=== PATIENT | female | born 1995 | race Caucasian/White ===

== ENCOUNTER → 2019-12-20 09:38 | Outpatient (BNVA) | payer OTHER, SELFPAY | PROVIDERS: PCP Internal Medicine; Visit Provider Advanced Practice Midwife | DX: Z76.89 Persons encountering health services in other specified circumstances (principal) ==

== ENCOUNTER → 2020-12-20 09:24 | Outpatient (BNVA) | payer OTHER, SELFPAY | PROVIDERS: PCP Internal Medicine; Visit Provider Advanced Practice Midwife ==

== ENCOUNTER 2021-01-31 09:49 | Outpatient (REF) | payer OTHER, SELFPAY | END 2021-01-31 09:50 | disposition home or self-care (01) | LOC: HO.HMGCLDS 09:49 | PROVIDERS: Visit Provider Internal Medicine | DX: Z20.822 Contact with and (suspected) exposure to COVID-19 (principal) | CPT/HCPCS: C9803; U0003; U0005 ==

== ENCOUNTER 2021-12-24 09:53 | Outpatient (REF) | payer OTHER, SELFPAY ==
[2021-12-24 16:32] LABS: CT PCR NOT DETECTED (Not Detect.); NG PCR NOT DETECTED (Not Detect.)
== END 2021-12-24 09:54 | disposition home or self-care (01) ==
LOC: HO.LNP 09:53
PROVIDERS: Visit Provider Advanced Practice Midwife
DX: Z01.419 Encounter for gynecological examination (general) (routine) without abnormal findings (principal)
CPT/HCPCS: 87491; 87591; 88142

== ENCOUNTER 2022-02-20 13:55 | Outpatient (REF) | payer OTHER, SELFPAY ==
[2022-02-20 15:12] LABS: Influenza A PCR NEGATIVE (Negative); Influenza B PCR NEGATIVE (Negative); Resp Syncy Virus RNA Qual PCR NEGATIVE (Negative); SARS COV2 PCR INHOUSE NEGATIVE (Negative)
== END 2022-02-20 13:56 | disposition home or self-care (01) ==
LOC: HO.LNP 13:55
PROVIDERS: Visit Provider Emergency Medicine
DX: Z20.822 Contact with and (suspected) exposure to COVID-19 (principal); R68.89 Other general symptoms and signs
CPT/HCPCS: 0241U

== ENCOUNTER 2022-06-22 23:29 | Emergency (ER) | payer OTHER, SELFPAY ==
[2022-06-22 23:33] VITALS: BP 159/85; PULSE 91; RESP 18; TEMP 36.9; O2SAT 97; BMI 30.4
[2022-06-23 00:47] VITALS: BP 140/82; PULSE 81; RESP 16; TEMP 36.8; O2SAT 98
--- NOTE | 2022-06-23 00:59 | ED_ITS ---
HPI - Back Pain/Injury General Chief Complaint: Back Pain/Injury Stated Complaint: LBP Time Seen by Provider: 06/23/22 00:49 Source: patient Mode of arrival: ambulatory Limitations: no limitations History of Present Illness HPI Narrative: Patient obese he has chronic back problems noticed increased pain lower leg for last 2 weeks seen her PCP started her on NSAIDs and muscle relaxers patient been taking that but without much relief no recent trauma no radiation of pain to the legs no bladder or bowel incontinence note slow in his Related Data Previous Rx's Medication Instructions Recorded norethindrone 1 mg-ethinyl 1 tab PO DAILY 21 days #21 tabs 12/24/21 estradiol 35 mcg (21) tablet (Nortrel) cyclobenzaprine 10 mg tablet 10 mg PO BEDTIME #14 tabs 06/10/22 meloxicam 15 mg tablet 15 mg PO DAILY #14 tabs 06/10/22 tramadol 50 mg tablet 50 mg PO Q6H PRN pain #20 tabs 06/23/22 Allergies Allergy/AdvReac Type Severity Reaction Status Date / Time No Known Allergies Allergy Verified 06/10/22 14:51 Review of Systems Review of Systems: Yes all other systems are reviewed and are negative [facility] Past Medical History Medical History History of congenital dysplasia of hip Morbid obesity with BMI of 40.0-44.9, adult Surgical History History of hip surgery Family History Family History Maternal Grandfather Diabetes mellitus Colon cancer Social History Social History Alcohol intake: never Patient Tobacco Use Status: Never used Tobacco Advance Directives: No Advance Directives Information Provided: Yes Current occupational status: unemployed Sexual orientation: Straight/Heterosexual Gender identity: Female Physical Exam Vital Signs: Vital Signs: Last Vital Signs Temp 98.2 F 06/23/22 00:47 Pulse 81 06/23/22 00:47 Resp 16 06/23/22 00:47 BP 140/82 H 06/23/22 00:47 Pulse Ox 98 06/23/22 00:47 O2 Del Method Room Air 06/23/22 00:47 BMI result Body Mass Index 30.4 Appearance: Alert. Oriented X3. No acute distress. ENT: Pharynx normal. Oral Mucosa moist Neck: Normal inspection. Neck supple. CVS: Normal heart rate and rhythm. Pulses normal. Respiratory: No respiratory distress. Equal air entry bilateral, no wheezing/rales/rhonchi Abdomen: Soft and nontender. Bowel sounds are present, no mass palpable, no CVA tenderness Skin: Skin warm and dry. Normal skin color. Normal skin turgor. Extremities: No lower extremity edema. No calf tenderness back: Diffuse lumbar paraspinal tenderness L> R no midline tenderness SLR negative bilaterally Neuro: Oriented X 3. No motor deficit. No sensory deficit.No cerebellar signs , cranial nerves II-XII intact Medications Administered Discontinued Medications Generic Name Dose Route Start Last Admin Trade Name Freq PRN Reason Stop Dose Admin Tramadol HCl 50 mg 06/23/22 00:59 06/23/22 01:04 Tramadol Hcl 50 Mg Tablet PO 06/23/22 01:00 50 mg ONCE ONE Administration Medical Decision Making Medical Decision Making [facility] Narrative: Patient clinically musculoskeletal pain with obesity discharge patient on tramadol advised to continue Flexeril UA is negative for UTI Lab Data [facility] Lab Attestation statement: I reviewed the patient's lab results. Labs: Lab Results 06/23/22 Range/Units 01:05 Urine Color Yellow Urine Appearance Clear Urine pH 6.5 (5.0-9.0) Ur Specific [place] >= 1.030 H (1.005-1.025) Urine Protein Trace (Neg-Trace) mg/dL Urine Glucose (UA) Negative (Negative) mg/dL Urine Ketones Negative (Negative) mg/dL Urine Blood Negative (Negative) Urine Nitrite Negative (Negative) Ur Leukocyte Esterase Negative (Negative) Discharge Plan Discharge Clinical Impression: Strain of lumbar region Patient Disposition: Home, Self-Care Instructions: Back Pain (ED) Additional Instructions: Take pain medication muscle relaxant as prescribed Follow-up with PCP Prescriptions: New tramadol 50 mg tablet 50 mg PO Q6H PRN (Reason: pain) Qty: 20 0RF No Action Nortrel 1/35 (21) 1-35 mg-mcg (21) tablet 1 tab PO DAILY 21 Days Qty: 21 11RF meloxicam 15 mg tablet 15 mg PO DAILY Qty: 14 0RF cyclobenzaprine 10 mg tablet 10 mg PO BEDTIME Qty: 14 0RF
[2022-06-23] MEDS: traMADoL HCL 50 MG TABLET PO (01:04)
[2022-06-23 01:14] LABS: Appearance Urine Clear; Color Urine Yellow; Glucose Urine UA Negative (Negative); Leukocyte Esterase Urine Negative (Negative); Nitrite Urine Negative (Negative); PH 6.5 (5.0-9.0); Specific Gravity - Urine >= 1.030 (1.005-1.025); Urine Blood Negative (Negative); Urine Ketones Negative (Negative); Urine Protein Trace mg/dL (Neg-Trace)
== END 2022-06-23 01:45 | disposition home or self-care (01) ==
PROVIDERS: Emergency Provider Internal Medicine; PCP Internal Medicine
DX: S39.012A Strain of muscle, fascia and tendon of lower back, initial encounter (principal); X58.XXXA Exposure to other specified factors, initial encounter; Y93.9 Activity, unspecified; Y92.9 Unspecified place or not applicable; Y99.9 Unspecified external cause status
CPT/HCPCS: 81003; 99283

== ENCOUNTER 2022-07-06 21:50 | Emergency (ER) | payer OTHER, SELFPAY ==
--- NOTE | ~2022-07-06 | XR_ITS ---
EXAMINATION: XR HIP, LEFT CLINICAL INFORMATION: Left hip pain COMPARISON: None available. TECHNIQUE: Single AP view the pelvis Two views of the left hip. FINDINGS: No acute fracture or dislocation. Healed subcapital fracture of the left femur with a single cannulated screw in the left femoral neck. Femoral heads are spherical. Pelvic ring intact. Soft tissues unremarkable. XR/XR hip LT min 2V IMPRESSION: * No acute fracture or dislocation. * Old healed subcapital fracture of the left femur.
--- NOTE | ~2022-07-06 | XR_ITS ---
EXAMINATION: XR LUMBOSACRAL SPINE CLINICAL INFORMATION: Back pain COMPARISON: None available. TECHNIQUE: Three views of the lumbosacral spine. FINDINGS: No acute fracture or traumatic malalignment. Vertebral body heights maintained. Disc space heights preserved. Paraspinal soft tissues unremarkable. XR/XR lumbar spine 2-3V IMPRESSION: Normal radiographic appearance of the lumbar spine.
[2022-07-06 22:00] VITALS: BP 130/88; PULSE 88; RESP 18; TEMP 36.6; O2SAT 98; BMI 43.1
[2022-07-06 22:22] LABS: MANUAL DIFF FLAG NO
[2022-07-06 22:25] LABS: Basophils Percent Auto 0.6 % (0-2); Eosinophils Absolute Auto 0.2 X10*3/uL (0.0-0.4); Eosinophils Percent Auto 3.2 % (0-4); Hematocrit 37.9 % (37.0-47.0); Hemoglobin 13.5 g/dl (12.0-16.0); Imm Gran Abs Auto 0.03 X10*3/uL (0.00-0.03); Imm Gran Pct Auto 0.4 % (0.0-0.4); Lymphocytes Absolute Auto 3.3 X10*3/uL (1.2-4.9); Mean Corpuscular HGB Conc 35.6 g/dl (31.0-35.0); Mean Corpuscular Hemoglobin 30.6 pg (27.0-33.0); Mean Corpuscular Volume 85.9 fL (80.0-98.0); Mean Platelet Volume 9.4 fL (9.4-12.3); Monocytes Absolute Auto 0.8 X10*3/uL (0.1-1.2); Monocytes Percent Auto 11.4 % (2-11); Neutrophils Absolute Auto 2.5 x10*3/uL (2.0-8.3); Neutrophils Percent Auto 36.4 % (45-73); Platelet Count 313 X10*3/uL (160-400); Red Blood Count 4.41 X10*6/uL (4.20-5.50); Red Cell Distribution Width 12.7 % (11.0-16.0); White Blood Count 6.9 X10*3/uL (4.8-10.8)
[2022-07-06 22:38] LABS: Alanine Aminotransferase 35 U/L (0-31); Albumin Level 3.9 g/dL (3.5-5.0); Alkaline Phosphatase 49 U/L (39-117); Anion Gap 14 (12-20); Aspartate Amino Transferase 50 U/L (5-31); Bilirubin Direct 0.1 mg/dL (0.0-0.5); Bilirubin Total 0.4 mg/dL (0.0-1.0); Blood Urea Nitrogen 9 mg/dL (9-16); Calcium 9.5 mg/dL (8.4-10.2); Carbon Dioxide 25 mmol/L (22-29); Chloride 104 mmol/L (96-108); Creatinine Clr Calc Pharmacy 161.7; Estimated Glomerular Filt Rate > 60; Glucose Random 88 mg/dL (60-115); Lipase 19 U/L (8-78); Potassium 4.5 mmol/L (3.3-5.1); Sodium 138 mmol/L (135-145); Total Protein 7.2 g/dL (6.5-8.0)
[2022-07-06 23:57] LABS: Appearance Urine Clear; Color Urine Yellow; Glucose Urine UA Negative (Negative); Leukocyte Esterase Urine Negative (Negative); Nitrite Urine Negative (Negative); Urine Blood Negative (Negative); Urine Ketones Negative (Negative); Urine Protein Negative (Neg-Trace)
[2022-07-06 23:58] LABS: UPreg QC Valid YES; Urine Pregnancy NEGATIVE (NEGATIVE)
--- NOTE | 2022-07-07 00:09 | ED.BACK ---
HPI - Back Pain/Injury General Chief Complaint: Back Pain/Injury Stated Complaint: lower back pain Time Seen by Provider: 07/06/22 23:54 Source: patient and family Mode of arrival: ambulatory Limitations: no limitations History of Present Illness HPI Narrative: 27-year-old female with chronic back pain came in for evaluation of worsening of her low back pain for the past 4-5 weeks, patient had previous evaluation by her PCP was prescribed muscle relaxant/NSAIDs with no relief of patient's symptoms, patient also was seen and evaluated in the emergency department 2 weeks ago. Patient declined any trauma or injury to the back, no numbness, no weakness, no urinary or stool incontinence. No fever, no chills, pain is localized to the low back now started to radiate to the left hip patient had old left hip surgery. Related Data Previous Rx's Medication Instructions Recorded norethindrone 1 mg-ethinyl 1 tab PO DAILY 21 days #21 tabs 12/24/21 estradiol 35 mcg (21) tablet (Nortrel) cyclobenzaprine 10 mg tablet 10 mg PO BEDTIME #14 tabs 06/10/22 meloxicam 15 mg tablet 15 mg PO DAILY #14 tabs 06/10/22 tramadol 50 mg tablet 50 mg PO Q6H PRN pain #20 tabs 06/23/22 oxycodone 5 mg tablet 5 mg PO Q6H PRN pain #10 tabs 07/07/22 Allergies Allergy/AdvReac Type Severity Reaction Status Date / Time No Known Allergies Allergy Verified 07/06/22 22:04 Review of Systems Review of Systems: All other systems are reviewed and are negative Constitutional: Reports as per HPI and Reports no additional constitutional complaints Eyes: Reports as per HPI and Reports no additional eye complaints Reports system reviewed and no additional complaints, except as documented Cardiovascular: Reports as per HPI and Reports no additional cardiovascular complaints Respiratory: Reports as per HPI and Reports no additional respiratory complaints Gastrointestinal: Reports as per HPI and Reports no additional gastrointestinal complaints Genitourinary: Reports no additional female genitourinary complaints Musculoskeletal: Reports no additional musculoskeletal complaints Skin/Breast: Reports system reviewed and no additional complaints, except as docu Psychiatric: Reports no additional psychiatric complaints Endocrine: Reports no additional endocrine complaints Hematologic/Lymphatic: Reports no additional hematologic/lymphatic complaints Allergic/Immunologic: Reports no additional allergic/immunologic complaints Reports system reviewed and no additional complaints, except as documented and Reports Abnormal speech present [facility] Past Medical History Medical History History of congenital dysplasia of hip Morbid obesity with BMI of 40.0-44.9, adult Surgical History History of hip surgery Family History Family History Maternal Grandfather Diabetes mellitus Colon cancer Social History Social History Alcohol intake: never Patient Tobacco Use Status: Never used Tobacco Advance Directives: No Advance Directives Information Provided: Yes Current occupational status: unemployed Sexual orientation: Straight/Heterosexual Gender identity: Female Physical Exam Vital Signs: Vital Signs: Last Vital Signs Temp 98.0 F 07/07/22 00:52 Pulse 79 07/07/22 00:52 Resp 16 07/07/22 00:52 BP 127/84 07/07/22 00:52 Pulse Ox 97 07/07/22 00:52 O2 Del Method Room Air 07/07/22 00:52 BMI result Body Mass Index 43.1 Vital signs have been reviewed as appeared to be correct. Blood pressure normal. Heart rate normal. Respiration rate normal. Temperature normal. Oxygen saturation normal. Appearance: Obese, Alert. Oriented X3. No acute distress. Head: Normal external exam. Normocephalic. Atraumatic. No [place] signs noted. No raccoon eyes noted Eyes: PERRLA. EOMI. Conjunctiva and sclera normal. Eyelids normal. ENT: TM's Normal. Pharynx normal. Uvula midline. Moist mucous membranes. No trismus noted. No drooling noted. No muffled voice noted. Neck: Normal inspection. Neck supple. FROM. No adenopathy. Thyroid Normal. No meningeal signs. No neck mass noted. CVS: Normal heart rate and rhythm. Heart sound normal. No murmurs noted. Pulses normal throughout. Respiratory: No respiratory distress. Painless inspiration. Breath sounds normal. No wheezes/rales/rhonchi noted. Chest nontender. No accessory muscle usage noted or decreased air movement noted. Abdomen: Soft and nontender. Bowel sounds normal in all 4 quadrants. No distention noted. No organomegaly noted. No visible injury noted. Back: No CVA tenderness. Full range of motion noted. Skin: Skin warm and dry. Normal skin color. Normal skin turgor. No rashes/lesions/lacerations noted. Extremities: No lower extremity edema. Extremities exhibit normal range of motion. Extremities nontender. Neuro: Oriented X 3. Cranial nerve exam: II-XII are grossly intact No motor deficit. No sensory deficit. Reflexes normal. Course Course Course Narrative: 27-year-old female with acute on chronic back pain for 1 month with no injuries, unremarkable labs/UA/lumbar spine x-ray/left hip x-rays. Rest, few pills of oxycodone, follow-up with PCP, consider outpatient MRI if symptoms persist to be arranged by PCP. Medications Administered Discontinued Medications Generic Name Dose Route Start Last Admin Trade Name Freq PRN Reason Stop Dose Admin Oxycodone HCl 5 mg 07/07/22 00:20 07/07/22 00:38 Oxycodone Hcl Immed Release 5 Mg Tablet PO 07/07/22 00:21 5 mg ONCE ONE Administration Medical Decision Making Differential Diagnosis Differential Diagnoses: The differential diagnosis associated with the presentation includes (UTI, pyelonephritis, DDD of the lumbar spine, compression fracture, lumbar radiculopathy, electrolytes abnormalities, severe anemia.) Admission/Observation Consideration of admission/observation: Escalation of care including admission/observation considered Lab Data MDM Lab Attestation statement: I reviewed the patient's lab results. 07/06/22 22:18 07/06/22 22:18 Labs: Lab Results 07/06/22 07/06/22 07/06/22 Range/Units 22:18 22:18 23:26 WBC 6.9 (4.8-10.8) X10*3/uL RBC 4.41 (4.20-5.50) X10*6/uL Hgb 13.5 (12.0-16.0) g/dl Hct 37.9 (37.0-47.0) % MCV 85.9 (80.0-98.0) fL MCH 30.6 (27.0-33.0) pg MCHC 35.6 H (31.0-35.0) g/dl RDW 12.7 (11.0-16.0) % Plt Count 313 (160-400) X10*3/uL MPV 9.4 (9.4-12.3) fL Immature Gran % (Auto) 0.4 (0.0-0.4) % Neut % (Auto) 36.4 L (45-73) % Lymph % (Auto) 48.0 H (20-40) % [place] % (Auto) 11.4 H (2-11) % Eos % (Auto) 3.2 (0-4) % Baso % (Auto) 0.6 (0-2) % Lymph # (Auto) 3.3 (1.2-4.9) X10*3/uL [place] # (Auto) 0.8 (0.1-1.2) X10*3/uL Eos # (Auto) 0.2 (0.0-0.4) X10*3/uL Baso # (Auto) 0.0 (0.0-0.2) X10*3/uL Abs Immat Gran (auto) 0.03 (0.00-0.03) X10*3/uL Absolute Neuts (auto) 2.5 (2.0-8.3) x10*3/uL Absolute Nucleated RBC 0.000 (0.0-0.012) X10*3/uL Nucleated RBC % (auto) 0.0 (0.0-0.2) /100WBC Sodium 138 (135-145) mmol/L Potassium 4.5 (3.3-5.1) mmol/L Chloride 104 (96-108) mmol/L Carbon Dioxide 25 (22-29) mmol/L Anion Gap 14 (12-20) BUN 9 (9-16) mg/dL Creatinine 0.71 (0.5-1.4) mg/dL Estim Creat Clear Calc 161.7 Estimated GFR > 60 Random Glucose 88 (60-115) mg/dL Calcium 9.5 (8.4-10.2) mg/dL Total Bilirubin 0.4 (0.0-1.0) mg/dL Direct Bilirubin 0.1 (0.0-0.5) mg/dL AST 50 H (5-31) U/L ALT 35 H (0-31) U/L Alkaline Phosphatase 49 (39-117) U/L Total Protein 7.2 (6.5-8.0) g/dL Albumin 3.9 (3.5-5.0) g/dL Lipase 19 (8-78) U/L Urine Color Yellow Urine Appearance Clear Urine pH 7.0 (5.0-9.0) Ur Specific [place] 1.010 (1.005-1.025) Urine Protein Negative (Neg-Trace) mg/dL Urine Glucose (UA) Negative (Negative) mg/dL Urine Ketones Negative (Negative) mg/dL Urine Blood Negative (Negative) Urine Nitrite Negative (Negative) Ur Leukocyte Esterase Negative (Negative) Urine Test (NEGATIVE) 07/06/22 Range/Units 23:26 WBC (4.8-10.8) X10*3/uL RBC (4.20-5.50) X10*6/uL Hgb (12.0-16.0) g/dl Hct (37.0-47.0) % MCV (80.0-98.0) fL MCH (27.0-33.0) pg MCHC (31.0-35.0) g/dl RDW (11.0-16.0) % Plt Count (160-400) X10*3/uL MPV (9.4-12.3) fL Immature Gran % (Auto) (0.0-0.4) % Neut % (Auto) (45-73) % Lymph % (Auto) (20-40) % [place] % (Auto) (2-11) % Eos % (Auto) (0-4) % Baso % (Auto) (0-2) % Lymph # (Auto) (1.2-4.9) X10*3/uL [place] # (Auto) (0.1-1.2) X10*3/uL Eos # (Auto) (0.0-0.4) X10*3/uL Baso # (Auto) (0.0-0.2) X10*3/uL Abs Immat Gran (auto) (0.00-0.03) X10*3/uL Absolute Neuts (auto) (2.0-8.3) x10*3/uL Absolute Nucleated RBC (0.0-0.012) X10*3/uL Nucleated RBC % (auto) (0.0-0.2) /100WBC Sodium (135-145) mmol/L Potassium (3.3-5.1) mmol/L Chloride (96-108) mmol/L Carbon Dioxide (22-29) mmol/L Anion Gap (12-20) BUN (9-16) mg/dL Creatinine (0.5-1.4) mg/dL Estim Creat Clear Calc Estimated GFR Random Glucose (60-115) mg/dL Calcium (8.4-10.2) mg/dL Total Bilirubin (0.0-1.0) mg/dL Direct Bilirubin (0.0-0.5) mg/dL AST (5-31) U/L ALT (0-31) U/L Alkaline Phosphatase (39-117) U/L Total Protein (6.5-8.0) g/dL Albumin (3.5-5.0) g/dL Lipase (8-78) U/L Urine Color Urine Appearance Urine pH (5.0-9.0) Ur Specific [place] (1.005-1.025) Urine Protein (Neg-Trace) mg/dL Urine Glucose (UA) (Negative) mg/dL Urine Ketones (Negative) mg/dL Urine Blood (Negative) Urine Nitrite (Negative) Ur Leukocyte Esterase (Negative) Urine Test NEGATIVE (NEGATIVE) Independent Interpretation I performed an independent interpretation of an: Plain X-Ray (Lumbar spine/left hip x-ray: Old healing left femur fracture.) Radiology Impression Discussion of test interpretation with radiology: I have reviewed the radiologist's reading. Chronic Conditions Patient?s care impacted by: Other (Obesity) Discharge Plan Discharge Clinical Impression: Strain of lumbar region Patient Disposition: Home, Self-Care Instructions: Back Pain (ED) Prescriptions: New oxycodone 5 mg tablet 5 mg PO Q6H PRN (Reason: pain) Qty: 10 0RF Rx Instructions: Partial Fill upon patient request. No Action Nortrel 1/35 (21) 1-35 mg-mcg (21) tablet 1 tab PO DAILY 21 Days Qty: 21 11RF tramadol 50 mg tablet 50 mg PO Q6H PRN (Reason: pain) Qty: 20 0RF meloxicam 15 mg tablet 15 mg PO DAILY Qty: 14 0RF cyclobenzaprine 10 mg tablet 10 mg PO BEDTIME Qty: 14 0RF Referrals: Netta Beasley MD [Primary Care Provider] - Stand Alone Forms: Work/School Release
[2022-07-07] MEDS: oxyCODONE HCl Immed Release 5 MG TABLET PO (00:38)
[2022-07-07 00:52] VITALS: BP 127/84; PULSE 79; RESP 16; TEMP 36.7; O2SAT 97
== END 2022-07-07 01:58 | disposition home or self-care (01) ==
PROVIDERS: Emergency Provider Emergency Medicine; PCP Internal Medicine
DX: S39.012A Strain of muscle, fascia and tendon of lower back, initial encounter (principal); X58.XXXA Exposure to other specified factors, initial encounter; Y93.9 Activity, unspecified; Y92.9 Unspecified place or not applicable; Y99.9 Unspecified external cause status
CPT/HCPCS: 36415; 72100; 73502; 80048; 80076; 81003; 81025; 83690; 85025; 99283

== ENCOUNTER 2022-07-23 11:31 | Outpatient (REF) | payer OTHER, SELFPAY ==
[2022-07-23 14:25] LABS: Cholesterol 158 mg/dL; HDL Cholesterol 45 mg/dL; LDL Cholesterol Calculated 72 mg/dl; Triglycerides 205 mg/dL
== END 2022-07-23 11:32 | disposition home or self-care (01) ==
LOC: HO.HMGCLDS 11:31
PROVIDERS: PCP Internal Medicine; Visit Provider Internal Medicine
DX: Z00.01 Encounter for general adult medical examination with abnormal findings (principal); E66.01 Morbid (severe) obesity due to excess calories; Z68.41 Body mass index [BMI] 40.0-44.9, adult
CPT/HCPCS: 36415; 80061

== ENCOUNTER 2022-09-17 12:09 | Outpatient (AMB) | payer OTHER, SELFPAY ==
--- NOTE | 2022-09-17 12:15 | MHC.OFFWIV ---
Intake Vital Signs 09/17/22 12:24 BP 120/80 Blood Pressure Location Lt brachial Position Sitting Pulse 87 Pulse Source Pulse Oximeter Temp 98.7 F Temp Source Temporal Artery Scan Pulse Oximetry (%) 98 Oxygen Delivery Method Room Air Intake Visit Reasons: EP ear clogged, throat pain [phone] Intake Note: Patient here for bilat ears clogged, throat irritation and sinus congestion for a couple days Patient Tobacco Use Status: Never used Tobacco Allergies No Known Allergies Allergy (Verified 09/17/22 12:16) Do you need a note to return to daycare/school/sports/work: No HPI HPI Comments History of Present Illness Details 27-year-old female presents for clogged ears. Patient states that fluid scope with loose he has 2 sons pressure congestion clogged ears insert well as postnasal drip. Denies fevers or chills. Her sinus pressure has resolved now are ears feel full. ON LICENSE OF [facility] Medical History (Updated 07/23/22 @ 11:30 by Netta Beasley MD) History of congenital dysplasia of hip Morbid obesity with BMI of 40.0-44.9, adult Surgical History History of hip surgery Family History Maternal Grandfather Diabetes mellitus Colon cancer Social History Housing: House Alcohol intake: never Patient Tobacco Use Status: Never used Tobacco e-Cigarette/Vaping Use: Never Used Current occupational status: employed Sexual orientation: Straight/Heterosexual Gender identity: Female Cognitive needs: No Hearing needs: No Vision needs: No Female Reproductive History Menstrual Age of Menarche: 11 Review of Systems Const All systems reviewed & are unremarkable except as noted in HPI and below Reports as per HPI ENT Details: Clogged ears in sore throat Physical Exam Vital Signs: Last Vital Signs Temp 98.7 F 09/17/22 12:24 Pulse 87 09/17/22 12:24 BP 120/80 09/17/22 12:24 Pulse Ox 98 09/17/22 12:24 Oxygen Delivery Method Room Air 09/17/22 12:24 Const General: cooperative, healthy appearing and alert HEENT Other: Healing midline no trismus. Posterior pharynx without erythema or exudates. 2+ bilateral tonsils. Bilateral effusions present both ears. Results AMB Rapid Strep AMB Rapid Strep Negative Last Edit by Kathryn Sousa CMA on 09/17/22 12:58 Results Reviewed Results Reviewed: Laboratory Last Values Strep Scn Rapid Clinic Negative 09/17/22 12:57 Assessment & Plan Assessment & Plan (1) Upper respiratory infection: Code(s): J06.9 - Acute upper respiratory infection, unspecified Plan VSS. Exam noted as above. Patient's symptoms most consistent with viral URI. Recommend antihistamines to help with the effusion Discharge instructions, follow up and treatment are discussed with patient in my usual fashion. Alternatives in treatment are also discussed. The patient will return for worsening symptoms or as needed. Advised that any labs/imaging ordered will be followed up on and contact made if further treatment needed. Counseled that patient's condition may require further evaluation and/or treatment. Symptoms of concern for worsening disorder discussed in detail in my customary manner. Patient does verbalize understanding of the plan, there are no apparent barriers to communication. The patient is given the opportunity to ask questions and have them answered to his/her satisfaction Orders: Orders AMB Rapid Strep Screen Today Z13.9 - Encounter for screening, unspecified Patient Instructions: You were seen and evaluated for your cold-like symptoms. We cannot say for sure at this time examination is reassuring. We believe is likely suffering from a viral URI. Recommend continued symptomatic treatment using saline rinses Tylenol Motrin as needed. You have been prescribed [*]. You should return to clinic or the emergency department if you experience any new worsening symptoms such as chest pain, shortness of breath, nausea, vomiting, abdominal pain, or any concerning symptoms I mentioned above. Coding Level of Care Code Est Pt Level 3 (74248) Diagnoses Upper respiratory infection J06.9
[2022-09-17 12:24] VITALS: BP 120/80; PULSE 87; TEMP 37.1; O2SAT 98
== END 2022-09-17 12:30 | disposition home or self-care (01) ==
PROVIDERS: PCP Internal Medicine; Visit Provider Physician Assistant
DX: J06.9 Acute upper respiratory infection, unspecified (principal); Z13.9 Encounter for screening, unspecified
CPT/HCPCS: 87880; 99213

== ENCOUNTER 2022-09-28 13:00 | Outpatient (RCR) | payer OTHER, SELFPAY ==
--- NOTE | 2022-07-27 08:50 | MHC.PT.EP ---
[facility] [place] Office [place] Office [place] Office [address] Oliver Desouza [address] [phone] F: [phone] F: [phone] F: [phone] F: [phone] Physical Therapy Plan of Care Date of Evaluation: Date of Surgery: Diagnosis: lumbago with sciatica, L side Assessment: 27 y/o female referred to PT with lumbago with sciatica, L side. S/s consistent with lumbar derangement resulting in pain and difficulty with prolonged standing at work, walking, sitting too long, [employer], and lifting secondary to decreased lumbar AROM, decreased hip/core strength, TTP lumbar paraspinals, limited L hip AROM, and impaired postural awareness. She responded to REIL with decreased pain, therefore educated pt on posture with lumbar roll and Nancy extension HEP. Recommend PT 2x/week for 5 weeks to address impairments, implement HEP, and optimize functional mobility. Frequency and Duration: The patient will be seen 2x/week for 5 weeks Short Term Goals: 3 weeks Compliant with HEP I with lumbar roll in sitting Will report >25% decrease in pain with functional activity (ranges from 4-10) Chcf Goals: 5 weeks I with HEP and self management of sx Pt will improve core and hip strength to > 4/5 to facilitate functional mobility Will decrease Oswestry to 12/50 (IR 18/50) Treatment Plan: Modalities to reduce pain, spasms and effusion. Manual therapy to restore motion and function. Therapeutic exercise to improve strength and flexibility. Neuromuscular re-education for posture and balance. Therapeutic activities to return to functional activities of daily living. Electronically signed by: Kacy Rowan PT Please sign and return to therapist. Thank you for your referral.
--- NOTE | 2022-09-28 15:12 | MHC.PT.DC ---
[facility] [place] Office [place] Office [place] Office [address] Oliver Desouza [address] [phone] F: [phone] F: [phone] F: [phone] F: [phone] Physical Therapy Discharge Report Diagnosis: lumbago with sciatica, L side Date of Surgery: Date of Evaluation: 07/27/22 Date of Discharge: 09/28/22 Treatments to Date: 12 Cancellations to Date: 0 No Shows to Date: 0 Discharge Status: Achieved Goals Improved Function Independent with HEP Discharge Summary: She is appropriate for d/c secondary to meeting all goals, Oswestry 5/50 (IR ), and I with HEP. Reviewed HEP and no further questions at this time. Electronically signed by: Kacy Rowan PT Please sign and return to therapist. Thank you for your referral.
== END 2022-09-28 15:12 | disposition home or self-care (01) ==
LOC: HO.PTCHIC 13:00
PROVIDERS: PCP Internal Medicine; Visit Provider Internal Medicine
DX: M54.42 Lumbago with sciatica, left side (principal)
CPT/HCPCS: 97110; 97140; 97161

== ENCOUNTER 2022-10-08 10:26 | Outpatient (AMB) | payer OTHER, SELFPAY ==
--- NOTE | 2022-10-08 10:30 | A.OFFPC_ITS ---
Vital Signs 10/08/22 10:31 Height 5 ft 8 in Weight 292 lb BMI 44.4 BP 120/80 Blood Pressure Location Rt brachial Position Sitting Pulse 84 Pulse Source Pulse Oximeter Pulse Oximetry (%) 98 Intake Visit Reasons: F/U completed PT- clearance for work Intake Note: pt is here for work clearance, completed PT [employer] Equipment Operator Required: No Allergies No Known Allergies Allergy (Verified 10/08/22 10:55) Medication List - Last Reconciled 10/08/22 by Netta Beasely MD norethindrone-ethin estradiol 1-35 mg-mcg (21) (Nortrel) 1 tab PO DAILY 21 days Tobacco use date assessed: 07/23/22 Dental Screening Dental Screen Date: 10/08/22 Did you have a dental visit in the last 12 months?: Yes Did you have a dental problem in the last 6 months where you did not have access to dental care?: No Was dental information given to patient?: Patient has dentist HPI F/U completed PT- clearance for work HPI Details 27-year-old lady here today for follow-up, was referred for physical therapy for treatment of lower thoracic pain with improvement of symptoms. Patient here requesting to get her medical clearance for to return to work completed. 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 Patient states that she just came from 6 likes yesterday and was walking the whole day, had back pain in the same area which improved with rest. Would like to go back to work without any restrictions starting next week. [facility] Medical History History of congenital dysplasia of hip Morbid obesity with BMI of 40.0-44.9, adult Surgical History History of hip surgery Family History Maternal Grandfather Diabetes mellitus Colon cancer Social History Housing: House Alcohol intake: never Patient Tobacco Use Status: Never used Tobacco e-Cigarette/Vaping Use: Never Used Current occupational status: employed Sexual orientation: Straight/Heterosexual Gender identity: Female Cognitive needs: No Hearing needs: No Vision needs: No Female Reproductive History Menstrual Age of Menarche: 11 Questionnaire Thrive Questionnaire Date Thrive assessed: 07/23/22 TITA-7 AMB Questionnaire TITA-7 Date TITA - 7 assessed: 07/23/22 Source: Developed by Drs. Miguel A Dawkins, Emma Ayala, Evan Menjivar and colleagues, with an educational mary from [employer]. Review of Systems Const All systems reviewed & are unremarkable except as noted in HPI and below Physical exam (Primary Care) Vital Signs: Last Vital Signs Pulse 84 10/08/22 10:31 BP 120/80 10/08/22 10:31 Pulse Ox 98 10/08/22 10:31 BMI result Body Mass Index 44.4 Tobacco/Smoking Status: Tobacco use Status Tobacco use date assessed 07/23/22 10/08/22 10:33 Patient Tobacco Use Status Never used Tobacco 10/08/22 10:33 e-Cigarette/Vaping Use Never Used 10/08/22 10:33 Thrive Assessment: Date of Thrive Assessment Date Thrive assessed 07/23/22 10/08/22 10:33 Const Other: Alert oriented x3, no acute distress noted, ambulatory with normal gait, morbidly obese Orientation/consciousness: patient oriented x3 Neck Other: Nonpalpable thyroid gland Neck: Yes full ROM, Yes no lymphadenopathy and Yes supple Back/Spine/Pelvis Thoracic/Lumbar Spine: thoracic and lumbar spine normal to inspection, thoraco- lumbar ROM normal, straight leg raise negative bilaterally, No pain with thoraco-lumbar ROM and No thoraco-lumbar spasm Skin General skin exam: no rashes or lesions noted Neuro General: patient oriented x3, gait normal, tone normal, moves all extremities, Normal light touch and pain sensation, no focal motor deficits and CN's II-XI intact bilaterally Extrem General: Yes full ROM, Yes no joint enlargement, Yes no pedal edema and Yes normal gait Assessment and Plan Assessment & Plan (1) History of back pain: Code(s): Z87.39 - Personal history of other diseases of the musculoskeletal system and connective tissue Plan: Back pain improvement with physical therapy, continue doing exercises taught at PT, medical clearance form completed, clear to go back to work without r estrictions starting 10/12/2022 Coding Level of Care Code Est Pt Level 3 (10295) Diagnoses History of back pain Z87.39
[2022-10-08 10:31] VITALS: BP 120/80; PULSE 84; O2SAT 98; BMI 44.4
== END 2022-10-08 10:56 | disposition home or self-care (01) ==
PROVIDERS: PCP Internal Medicine; Visit Provider Internal Medicine
DX: Z87.39 Personal history of other diseases of the musculoskeletal system and connective tissue (principal)
CPT/HCPCS: 99213

== ENCOUNTER 2022-11-03 10:47 | Outpatient (AMB) | payer OTHER, SELFPAY ==
--- NOTE | 2022-11-03 11:52 | MHC.OFFWIV ---
Intake Vital Signs 11/03/22 11:53 Height 5 ft 8 in Weight 296 lb 8 oz BMI 45.1 BP 128/80 Blood Pressure Location Lt brachial Position Sitting Pulse 74 Pulse Source Pulse Oximeter Temp 97.9 F Temp Source Temporal Artery Scan Pulse Oximetry (%) 98 Intake Visit Reasons: EST/sore throat/[phone] Intake Note: pt is here for c/o sore throat Patient Tobacco Use Status: Never used Tobacco Allergies No Known Allergies Allergy (Verified 11/03/22 12:36) Medication List - Last Reconciled 11/03/22 by Willie Alvares MD norethindrone-ethin estradiol 1-35 mg-mcg (21) (Nortrel) 1 tab PO DAILY 21 days Do you need a note to return to daycare/school/sports/work: Yes HPI EST/sore throat/[phone] HPI Details Patient presents for a sick visit. Reporting symptoms of sinus congestion, sore throat and difficulty swallowing. Low-grade fever. No family member is sick. No recent travel. Patient reports symptoms of malaise and fatigue. [facility] Medical History History of congenital dysplasia of hip Morbid obesity with BMI of 40.0-44.9, adult Surgical History History of hip surgery Family History Maternal Grandfather Diabetes mellitus Colon cancer Social History Housing: House Alcohol intake: never Patient Tobacco Use Status: Never used Tobacco e-Cigarette/Vaping Use: Never Used Current occupational status: employed Sexual orientation: Straight/Heterosexual Gender identity: Female Cognitive needs: No Hearing needs: No Vision needs: No Female Reproductive History Menstrual Age of Menarche: 11 Physical Exam Vital Signs: Last Vital Signs Temp 97.9 F 11/03/22 11:53 Pulse 74 11/03/22 11:53 BP 128/80 11/03/22 11:53 Pulse Ox 98 11/03/22 11:53 BMI result Body Mass Index 45.1 Const General: cooperative and healthy appearing Nutritional Appearance: well nourished Orientation/consciousness: patient oriented x3 Limitations: no limitations HEENT Head: Yes normal to inspection Eyes General: appearance normal, both eyes and all related structures Neck Neck: Yes normal visual inspection Chest Chest palpation & inspection: normal palpation of entire chest wall Resp Effort & Inspection: normal respiratory effort Neuro General: patient oriented x3 Results AMB Rapid Strep AMB Rapid Strep Negative Last Edit by Kathryn Sousa CMA on 11/03/22 12:37 Assessment & Plan Assessment & Plan (1) Upper respiratory tract infection: Code(s): J06.9 - Acute upper respiratory infection, unspecified Plan: Increase fluid intake. Tylenol for aches and pains. If symptoms worsen, follow-up here for a recheck. No antibiotics needed. Orders: Orders AMB Rapid Strep Screen Today Z13.9 - Encounter for screening, unspecified Coding Level of Care Code Est Pt Level 3 (88902) Diagnoses Upper respiratory tract infection J06.9
[2022-11-03 11:53] VITALS: BP 128/80; PULSE 74; TEMP 36.6; O2SAT 98; BMI 45.1
== END 2022-11-03 13:57 | disposition home or self-care (01) ==
PROVIDERS: PCP Internal Medicine; Visit Provider Internal Medicine
DX: J06.9 Acute upper respiratory infection, unspecified (principal); J02.9 Acute pharyngitis, unspecified
CPT/HCPCS: 87880; 99213

== ENCOUNTER 2022-11-25 15:09 | Emergency (ER) | payer OTHER, SELFPAY ==
--- NOTE | ~2022-11-25 | XR_ITS ---
EXAMINATION: XR CHEST CLINICAL INFORMATION: Cough. COMPARISON: None available. TECHNIQUE: 2 views of the chest were obtained. FINDINGS: The cardiomediastinal silhouette is normal. There is no focal lung consolidation or pleural effusion. The bony structures and soft tissues are unremarkable. XR/XR chest 2V IMPRESSION: No active cardiopulmonary disease.
--- NOTE | 2022-11-25 16:09 | ED.GENADULT ---
HPI - General Adult General Chief complaint: Upper Respiratory Symptoms Stated complaint: cough, tasting like metallic Time Seen by Provider: 11/25/22 17:08 Source: patient Mode of arrival: ambulatory Limitations: no limitations History of Present Illness HPI narrative: 27 yo female with history of morbid obesity presents to the ER for evaluation of an ongoing cough for the last 2 weeks. She feels congestion in her chest and is unable to get it all the way out. She was sick with similar symptoms 6 weeks ago and it resolved with positive sick contacts at the time. She reports new onset diarrhea yesterday without vomiting or abdominal pain. She reports a new metallic taste in her mouth as well. No fever, chills, difficulty breathing or chest pain. She reports today with her coughing fits she would get lightheaded and dizzy prompting ER evaluation. complaint: cough Onset (ago): week(s) (2) Location: chest Radiation: non-radiation Severity: mild Quality: aching Relieving factors: rest Exacerbating factors: other (coughing) Associated symptoms: other (lightheadedness) Treatments prior to arrival: none Related Data Previous Rx's Medication Instructions Recorded norethindrone 1 mg-ethinyl 1 tab PO DAILY 21 days #21 tabs 12/24/21 estradiol 35 mcg (21) tablet (Nortrel) azithromycin 250 mg tablet See Rx Instructions PO .COMPLEX #6 11/25/22 (Zithromax Z-Loco) tabs benzonatate 100 mg capsule 100 mg PO TID PRN cough #30 caps 11/25/22 guaifenesin 1,200 mg tablet, 1,200 mg PO BID #10 tabs 11/25/22 extended release 12 hr (Mucus-ER MAX) prednisone 20 mg tablet 40 mg (2 x 20 mg) PO DAILY #10 tabs 11/25/22 Allergies Allergy/AdvReac Type Severity Reaction Status Date / Time No Known Allergies Allergy Verified 11/03/22 12:36 Review of Systems Review of Systems: Yes all other systems are reviewed and are negative [facility] Past Medical History Medical History History of congenital dysplasia of hip Morbid obesity with BMI of 40.0-44.9, adult Surgical History History of hip surgery Family History Family History Maternal Grandfather Diabetes mellitus Colon cancer Social History Social History Housing: House Alcohol intake: never Patient Tobacco Use Status: Never used Tobacco e-Cigarette/Vaping Use: Never Used Advance Directives: No Advance Directives Information Provided: No Current occupational status: employed Sexual orientation: Straight/Heterosexual Gender identity: Female Cognitive needs: No Hearing needs: No Vision needs: No Physical Exam ED Vital Signs: Vital Signs - 24 hr 11/25/22 16:10 Temperature 98.2 F Pulse Rate 93 Respiratory Rate 18 Blood Pressure 149/97 H Pulse Oximetry 97 Oxygen Delivery Method Room Air BMI result Body Mass Index 45.9 Appearance: Alert. Oriented X3. No acute distress. Head: normocephalic, atraumatic. Eyes: Pupils equal, round and reactive to light. ENT: Pharynx normal. No tonsillar swelling or exudate. Neck: Normal inspection. Neck supple. CVS: Normal heart rate and rhythm. Pulses normal. Respiratory: No respiratory distress. Breath sounds normal. Skin: Skin warm and dry. Normal skin color. Normal skin turgor. No rashes. Extremities: No lower extremity edema. No joint swelling. Neuro/psych: Oriented X 3. Grossly normal, nonfocal. CN II-XII intact. Normal speech and cognition. Course Course Course Narrative: This is an RME: Additional HPI, ROS, PE not included below will be deferred to primary provider. This is a [id number]-female presenting to the emergency department with a complaint of dry cough x 1.5 weeks. Reporting lightheadedness and metallic taste phlegm in her throat with coughing. Reportings some SOB with coughing, +diarrhea. No fevers, chills. Sister sick with cold likely symptoms. VSS. Patient was 5 several weeks ago felt better and then symptoms then returned with worsening cough. Plan: CXR, viral swabs Medical Decision Making Medical Decision Making MDM Narrative: 27 yo female presenting with cough x2 weeks along with diarrhea, metallic taste and new episodes of lightheadedness w/ coughing today. VSS today. Lungs are clear throughout, no wheezing or rhonchi. CXR reviewed - no PNA. viral studies negative. PERC negative. will treat for acute bronchitis. she is stable for discharge home with supportive care and outpatient follow up. Differential Diagnosis Differential Diagnoses: The differential diagnosis associated with the presentation includes strep, covid, flu, rsv, other viral syndrome, bronchitis, pneumonia, low clinical suspicion for PE Admission/Observation Consideration of admission/observation: Escalation of care including admission/observation considered considered on arrival, VS stable and exam is unremarkable Lab Data MDM Lab Attestation statement: I reviewed the patient's lab results. Labs: Lab Results 11/25/22 Range/Units 17:06 Influenza Type A (PCR) NEGATIVE (Negative) Influenza Type B (PCR) NEGATIVE (Negative) RSV RNA Qual (PCR) NEGATIVE (Negative) SARS-CoV-2 RNA (RT-PCR) NEGATIVE (Negative) Independent Interpretation I performed an independent interpretation of an: Plain X-Ray Interpretation: cxr clear, no infiltrate or effusion Radiology Impression Discussion of test interpretation with radiology: I have reviewed the radiologist's reading. Radiologist Impression: EXAMINATION: XR CHEST CLINICAL INFORMATION: Cough. COMPARISON: None available. TECHNIQUE: 2 views of the chest were obtained. FINDINGS: The cardiomediastinal silhouette is normal. There is no focal lung consolidation or pleural effusion. The bony structures and soft tissues are unremarkable. XR/XR chest 2V IMPRESSION: No active cardiopulmonary disease. External Record Review External record reviewed: Outpatient record and Prior outpatient labs Prescription Management I considered prescription management with: Antibiotic Chronic Conditions Patient?s care impacted by: Other (obesity) Critical Care Time Critical Care Time Critical Care Time: No Discharge Plan Discharge Clinical Impression: Bronchitis Patient Disposition: Home, Self-Care Instructions: Acute Bronchitis (ED) Additional Instructions: Your chest x-ray was normal You tested negative for COVID, Flu and RSV Take the prescribed antibiotics as directed, complete the entire course and do not miss any doses Take the prescribed steroid medication as directed to help with the inflammation in your lungs. Rest and drink plenty of fluids. Follow up with your primary care doctor. If you develop new or worsening symptoms call 911 or come back to the ER for further evaluation. Prescriptions: New azithromycin [Zithromax Z-Loco] 250 mg tablet See Rx Instructions .ROUTE .COMPLEX Qty: 6 0RF Rx Instructions: take 500 mg today (day 1), then 250 mg for 4 days (days 2-5) prednisone 20 mg tablet 40 mg PO DAILY Qty: 10 0RF benzonatate 100 mg capsule 100 mg PO TID PRN (Reason: cough) Qty: 30 0RF guaifenesin [Mucus-ER MAX] 1,200 mg tablet extended release 12hr 1,200 mg PO BID Qty: 10 0RF No Action Nortrel 1/35 (21) 1-35 mg-mcg (21) tablet 1 tab PO DAILY 21 Days Qty: 21 11RF Referrals: Netta Beasley MD [Primary Care Provider] - Stand Alone Forms: Work/School Release Interventions: ED Discharge Assessment Last Done: 11/25/22 19:00 Discharge Date/Time: 11/25/22 19:00
[2022-11-25 16:10] VITALS: BP 149/97; PULSE 93; RESP 18; TEMP 36.8; O2SAT 97; BMI 45.9
[2022-11-25 17:52] LABS: Influenza A PCR NEGATIVE (Negative); Influenza B PCR NEGATIVE (Negative); Resp Syncy Virus RNA Qual PCR NEGATIVE (Negative); SARS COV2 PCR INHOUSE NEGATIVE (Negative)
== END 2022-11-25 19:00 | disposition home or self-care (01) ==
PROVIDERS: Physician Assistant Medical; Emergency Provider Emergency Medicine; PCP Internal Medicine
DX: J40 Bronchitis, not specified as acute or chronic (principal); R05.9 Cough, unspecified; R42 Dizziness and giddiness; R06.02 Shortness of breath; R19.7 Diarrhea, unspecified; Z20.822 Contact with and (suspected) exposure to COVID-19; Z20.828 Contact with and (suspected) exposure to other viral communicable diseases; Z79.899 Other long term (current) drug therapy
CPT/HCPCS: 0241U; 71046; 99282; 99283

== ENCOUNTER 2022-11-26 22:07 | Emergency (ER) | payer OTHER, SELFPAY ==
--- NOTE | ~2022-11-26 | CT_ITS ---
EXAMINATION: CT HEAD WITHOUT CONTRAST CLINICAL INFORMATION: Headache COMPARISON: None available. TECHNIQUE: Contiguous axial imaging was performed from the skull base to vertex without intravenous administration of contrast. This CT examination was performed using dose optimization techniques as appropriate, variously including the following: *Automated exposure control *Adjustment of mA and/or kV according to patient size (this includes techniques or standardized protocols for targeted exams where dose is matched to indication/reason for exam; i.e. extremities or head) *Use of iterative reconstruction technique DLP: 755 mGy-cm FINDINGS: There is no evidence of acute intracranial hemorrhage or territorial infarction. No abnormal mass effect or midline shift is seen. Foley to white matter differentiation is well preserved. No extra-axial fluid collections are identified. No hydrocephalus. No significant volume loss. There is no abnormal attenuation within the brain parenchyma. No acute osseous or soft tissue abnormality. The mastoid air cells and visualized portions of the paranasal sinuses are well aerated. CT/CT head/brain wo IV con IMPRESSION: No acute intracranial pathology. Normal CT imaging appearance of the brain.
[2022-11-26 22:32] VITALS: BP 163/102; BP 184/102; PULSE 120; PULSE 99; RESP 18; TEMP 36.8; O2SAT 97; O2SAT 98; BMI 45.9
--- NOTE | 2022-11-26 23:30 | ED.HA ---
HPI - Headache General Chief Complaint: General Medical Stated Complaint: near syncope,hypertensive,tachy,headache Time Seen by Provider: 11/26/22 22:57 Source: patient Mode of arrival: ambulatory Limitations: no limitations History of Present Illness HPI Narrative: 27 yo female with PMH of obesity seen yesterday for bronchitis and started on zpak, guaifenesin, tessalon and prednisone. She has never been on prednisone before. Tonight she felt dizzy with a headache and asked her mom if she could check her blood pressure and it was high they kept checking it and it kept getting higher and higher 160 170s. She has never been on prednisone before. She still has a headache right now. This just started prior to arrival MD elicited complaint: headache Pertinent past history: other (new prednisone use) Onset (ago): hour(s) (1) Onset description: gradually Location: diffuse Severity: moderate Quality & Timing: throbbing Exacerbating factors: none Relieving factors: nothing Context: occurred at rest Associated symptoms: lightheadedness Treatments prior to arrival: none Related Data Previous Rx's Medication Instructions Recorded norethindrone 1 mg-ethinyl 1 tab PO DAILY 21 days #21 tabs 12/24/21 estradiol 35 mcg (21) tablet (Nortrel) azithromycin 250 mg tablet See Rx Instructions PO .COMPLEX #6 11/25/22 (Zithromax Z-Loco) tabs benzonatate 100 mg capsule 100 mg PO TID PRN cough #30 caps 11/25/22 guaifenesin 1,200 mg tablet, 1,200 mg PO BID #10 tabs 11/25/22 extended release 12 hr (Mucus-ER MAX) prednisone 20 mg tablet 40 mg (2 x 20 mg) PO DAILY #10 tabs 11/25/22 Allergies Allergy/AdvReac Type Severity Reaction Status Date / Time No Known Allergies Allergy Verified 11/03/22 12:36 Review of Systems Review of Systems: Constitutional : No Fever, No Chills, No Fatigue Cardiovascular : No Chest Pain, No SOB, No Dyspnea on Exertion Respiratory : No Cough, No Sputum Gastrointestinal : No Nausea, No Vomiting, No Diarrhea, No abdominal Pain Genitourinary : No Dysuria, No Urinary Frequency, No Hematuria, Musculoskeletal : No joint pain, No Myalgias, No Joint Swelling Skin : No Skin Lesions, No rash Neuro : No Weakness, No Numbness, pos Dizziness, positive Headache Psych : No Anxiety/Panic, No Depression All other systems reviewed and are negative [facility] Past Medical History Attestation statement: The following information was validated with the patient. Source: old records reviewed Medical History Morbid obesity with BMI of 40.0-44.9, adult History of congenital dysplasia of hip Surgical History History of hip surgery Family History Family History Maternal Grandfather Diabetes mellitus Colon cancer Social History Social History Housing: House Alcohol intake: never Patient Tobacco Use Status: Never used Tobacco e-Cigarette/Vaping Use: Never Used Advance Directives: No Advance Directives Information Provided: No Current occupational status: employed Sexual orientation: Straight/Heterosexual Gender identity: Female Cognitive needs: No Hearing needs: No Vision needs: No Physical Exam Vital Signs: Vital Signs: Last Vital Signs Temp 98.3 F 11/26/22 22:32 Pulse 99 11/26/22 22:32 Resp 18 11/26/22 22:32 BP 163/102 H 11/26/22 22:32 Pulse Ox 97 11/26/22 22:32 O2 Del Method Room Air 11/26/22 22:32 BMI result Body Mass Index 45.9 Appearance: Alert. Oriented X3. No acute distress. Eyes: Pupils equal, round and reactive to light. ENT: Pharynx normal. Neck: Normal inspection. Neck supple. CVS: Normal heart rate and rhythm. Pulses normal. Respiratory: No respiratory distress. Breath sounds normal. Abdomen: Soft and non-tender. Skin: Skin warm and dry. Normal skin color. Normal skin turgor. Extremities: No lower extremity edema. No calf ttp Neuro: Oriented X 3. No motor deficit. No sensory deficit. Medical Decision Making Medical Decision Making [facility] Narrative: 27 yo female with PMH of obesity seen yesterday for bronchitis here with c/o headaches and high blood pressure stopped taking OTC cough and cold medications. She has never been on prednisone before. At this time her BP is down 131/82 she is NIH 0. Her headache is present but she is not toxic appearing no meningeal signs and neuro symptoms are not present and non focal. I am ordering CT scan for mass. If negative plan will be to stop prednisone has no hx of COPD/asthma/reactive airway disease. Differential Diagnosis Differential Diagnoses: The differential diagnosis associated with the presentation includes tension headache, prednisone related HTN, mass Admission/Observation Consideration of admission/observation: Escalation of care including admission/observation considered BP improved stable for DC med related- CT negative within 6 hours of symptoms doubt SAH Lab Data MDM Lab Attestation statement: I reviewed the patient's lab results. Labs: Lab Results 11/27/22 Range/Units 00:07 Urine Test NEGATIVE (NEGATIVE) Independent Interpretation I performed an independent interpretation of an: CT Scan (normal ) Radiology Impression Discussion of test interpretation with radiology: I have reviewed the radiologist's reading. External Record Review External record reviewed: Inpatient record Prescription Management I considered prescription management with: Other (take off prednisone) Discharge Plan Discharge Clinical Impression: HTN (hypertension) Qualifiers: Hypertension type: other secondary hypertension Qualified Code(s): I15.8 - Other secondary hypertension Acute headache Qualifiers: Headache type: tension-type Intractability: not intractable Qualified Code(s): G44.209 - Tension-type headache, unspecified, not intractable Patient Disposition: Home, Self-Care Instructions: Acute Headache (ED), Hypertension (ED) Additional Instructions: CT head was negative - suspect due to prednisone stop taking the prednisone. avoid over the counter cough and cold medications. it may take a few days for your blood pressure to become normal. please monitor your blood pressure twice a day for the next few days. do not overtake it. return for numbness, weakness, vomiting, vision changes, worsening pain or any other concerns. Prescriptions: No Action Nortrel () 1-35 mg-mcg (21) tablet 1 tab PO DAILY 21 Days Qty: 21 11RF azithromycin [Zithromax Z-Loco] 250 mg tablet See Rx Instructions .ROUTE .COMPLEX Qty: 6 0RF Rx Instructions: take 500 mg today (day 1), then 250 mg for 4 days (days 2-5) prednisone 20 mg tablet 40 mg PO DAILY Qty: 10 0RF benzonatate 100 mg capsule 100 mg PO TID PRN (Reason: cough) Qty: 30 0RF guaifenesin [Mucus-ER MAX] 1,200 mg tablet extended release 12hr 1,200 mg PO BID Qty: 10 0RF
[2022-11-27 00:20] LABS: UPreg QC Valid YES; Urine Pregnancy NEGATIVE (NEGATIVE)
[2022-11-27 01:01] VITALS: BP 129/86; PULSE 86; RESP 16; O2SAT 99
== END 2022-11-27 01:10 | disposition home or self-care (01) ==
PROVIDERS: Emergency Provider Emergency Medicine; PCP Internal Medicine
DX: I10 Essential (primary) hypertension (principal); G44.209 Tension-type headache, unspecified, not intractable; E66.01 Morbid (severe) obesity due to excess calories; Z68.42 Body mass index [BMI] 45.0-49.9, adult
CPT/HCPCS: 70450; 81025; 99283; 99284

== ENCOUNTER 2022-12-01 12:27 | Outpatient (AMB) | payer OTHER, SELFPAY ==
[2022-12-01 12:30] VITALS: BP 114/88; PULSE 91; O2SAT 97; BMI 46.7
--- NOTE | 2022-12-01 12:30 | MHC.PC.OV ---
Vital Signs 12/01/22 12:30 Height 5 ft 7 in Weight 298 lb 2 oz BMI 46.7 BP 114/88 Blood Pressure Location Rt brachial Position Sitting Pulse 91 Pulse Source Pulse Oximeter Pulse Oximetry (%) 97 Oxygen Delivery Method Room Air Intake Visit Reasons: [facility] ER f/u bronchitis Intake Note: pt is here to follow up from [facility] ER on 11/26/22 Allergies No Known Allergies Allergy (Verified 12/01/22 12:58) Medication List - Last Reconciled 12/01/22 by Netta Beasley MD albuterol sulfate 90 mcg/actuation 2 puffs inhalation Q6H PRN benzonatate 100 mg PO TID PRN budesonide-formoterol 160-4.5 mcg/actuation (Symbicort) 2 puffs inhalation Q12H 30 days guaifenesin ER (Mucus-ER MAX) 1,200 mg PO BID inhalational spacing device (BreatheRite MDI Spacer) As directed Tobacco use date assessed: 12/01/22 Dental Screening Dental Screen Date: 12/01/22 Did you have a dental visit in the last 12 months?: Yes Did you have a dental problem in the last 6 months where you did not have access to dental care?: No Was dental information given to patient?: Patient has dentist HPI [facility] ER f/u bronchitis HPI Details 27-year-old lady here today for follow-up after recent visit to the ER where she was diagnosed with bronchitis. She was placed on Z-Loco and prednisone 40 mg daily. Patient however developed marked elevation in her blood pressure, and complained of headache, lightheadedness, which caused her to go back to the ER. Prednisone was discontinued. She is still complaining of cough with wheezing, and chest congestion despite finishing taking Z-Loco rx. Does not have any inhalers. Chest x-ray done showed no evidence of pneumonia or any acute process. She has strong family history of asthma, mother and sister and other siblings has it [facility] Medical History (Updated 12/01/22 @ 12:53 by Netta Beasley MD) Wheezing on auscultation Morbid obesity with BMI of 40.0-44.9, adult History of congenital dysplasia of hip Surgical History History of hip surgery Family History Maternal Grandfather Diabetes mellitus Colon cancer Social History Housing: House Alcohol intake: never Patient Tobacco Use Status: Never used Tobacco e-Cigarette/Vaping Use: Never Used Current occupational status: employed Sexual orientation: Straight/Heterosexual Gender identity: Female Cognitive needs: No Hearing needs: No Vision needs: No Female Reproductive History Menstrual Age of Menarche: 11 Questionnaire Thrive Questionnaire Date Thrive assessed: 07/23/22 TITA-7 AMB Questionnaire TITA-7 Date TITA - 7 assessed: 07/23/22 Source: Developed by Drs. Miguel A Dawkins, Emma Ayala, Evan Menjivar and colleagues, with an educational mary from [employer]. Review of Systems Const Reports fatigue, Denies fever(s), Denies lethargy, Denies malaise and Denies stops breathing during sleep ENT Reports no additional complaints Card Reports no additional complaints Resp Reports as per HPI and Denies hemoptysis GI Reports no additional complaints Endo Reports fatigue Physical exam (Primary Care) Vital Signs: Last Vital Signs Pulse 91 12/01/22 12:30 BP 114/88 12/01/22 12:30 Pulse Ox 97 12/01/22 12:30 Oxygen Delivery Method Room Air 12/01/22 12:30 BMI result Body Mass Index 46.7 Tobacco/Smoking Status: Tobacco use Status Tobacco use date assessed 12/01/22 12/01/22 12:36 Patient Tobacco Use Status Never used Tobacco 12/01/22 12:32 e-Cigarette/Vaping Use Never Used 12/01/22 12:32 Thrive Assessment: Date of Thrive Assessment Date Thrive assessed 07/23/22 12/01/22 12:32 Const General: comfortable and no acute distress Nutritional Appearance: obese Orientation/consciousness: patient oriented x3 HENMT Ears: hearing grossly normal bilaterally, external ears normal, TM's normal bilaterally and EAC's normal General nose exam: Normal external nose present and Normal nasal mucous membranes and turbinates present Face and sinus: Yes sinuses nontender and Yes face symmetric Mouth: Normal oral and palatal mucosa present, oropharynx normal and moist mucous membranes Neck Neck: Yes full ROM, Yes no lymphadenopathy and Yes supple Resp Other: Diffuse rhonchi heard, diminished breath sounds bilateral Cardio Other: S1-S2 present regular rate and rhythm GI Palpation (GI): Soft to palpation, nontender and no guarding Neuro General: patient oriented x3, gait normal, tone normal, moves all extremities, Normal light touch and pain sensation, no focal motor deficits and CN's II-XI intact bilaterally Office Procedures Nebulizer Treatment Nebulizer Treatment [id number]/MDI RX initial, or Nebulizer Subsequent Treatment Office Meds ipratropium 0.5 mg-albuterol 3 mg (2.5 mg base)/3 mL nebulization soln Performing Provider: Netta Beasley MD Performing Location: [facility] Administered by: Farheen Vázquez CMA on 12/01/22 13:17 Dose Route Admin Location Dispensed Lot Number Expiration Date NDC [employer] 3 mL inhalation 3 mL [id number] 04/15/23 4281-9183-59 [facility] [employer] Assessment and Plan Assessment & Plan (1) Cough variant asthma: Code(s): J45.991 - Cough variant asthma Plan: Given nebulizer treatment with ipratropium bromide and albuterol. Ordered PFT with methacholine challenge . Restarted on Symbicort 160-4.5 g, instructed to do 1 inhalation every 12 hours, rinse mouth after use, she was also given a prescription for or her own albuterol inhaler with a spacer to use as needed for episodes of bronchospasm and wheezing she does have a nebulizer at home, prescription was also written for albuterol neb use to use every 6 hours as needed for episodes of bronchospasm and wheezing if unable to use inhaler. Patient reminded to get her flu vaccine and her COVID vaccine booster once she feels well. Work note given to be out of work until Wednesday the 06 of December (2) Family history of asthma in mother: Code(s): Z82.5 - Family history of asthma and other chronic lower respiratory diseases Orders: Orders AMB Nebulizer Treatment 12/01/22 J06.9 - Acute upper respiratory infection, unspecified PFT pulmonary function test 12/01/22 J45.991 - Cough variant asthma, R06.2 - Wheezing, Z82.5 - Family history of asthma and other chronic lower respiratory diseases RT pft w methacholine 12/01/22 J45.991 - Cough variant asthma, R06.2 - Wheezing Medications: New budesonide-formoterol 160-4.5 mcg/actuation (Symbicort) 2 puffs inhalation Q12H 10.2 grams 0RF 30 days inhalational spacing device (BreatheRite MDI Spacer) As directed 1 ea 0RF albuterol sulfate 90 mcg/actuation 2 puffs inhalation Q6H PRN 8.5 grams 1RF shortness of breath or wheezing albuterol sulfate 2.5 mg (3 mL) inhalation Q6H PRN 75 mL 0RF shortness of breath or wheezing Coding Level of Care Code Est Pt Level 3 (12141) Diagnoses Cough variant asthma J45.991 Family history of asthma in mother Z82.5 CPT Codes Nebulizer Treatment - Nebulizer Treatment, initial or subsequent: [id number]/MDI RX initial, or Nebulizer Subsequent Treatment ([id number])
== END 2022-12-01 13:52 | disposition home or self-care (01) ==
PROVIDERS: PCP Internal Medicine; Visit Provider Internal Medicine
DX: J06.9 Acute upper respiratory infection, unspecified (principal)
CPT/HCPCS: 94640; 99213; J7620

== ENCOUNTER 2023-02-23 08:36 | Outpatient (AMB) | payer OTHER, SELFPAY ==
--- NOTE | 2023-02-23 08:44 | A.OFFVIS_ITS ---
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 Doing well with concerns: Stopped OCPs due to rescheduled appointments, no period since November 2022. She reports stress eating lately, and stays active with walking on her job. She talks with her family, not interested in counseling. Currently not sexually active 1 yr. She denies vaginal itching and irritation. STI screening offered; she declines. Denies family history of breast or ovarian cancer. Last pap smear 2021, negative. She denies any contraindications to control such as: migraines with aura, history of DVT or pulmonary emboli, high blood pressure, liver disease, thrombolic disorders, Lupus, +SHARMIN, breast cancer, or smoking. [facility] Medical History Wheezing on auscultation Morbid obesity with BMI of 40.0-44.9, adult History of congenital dysplasia of hip Surgical History History of hip surgery Family History Maternal Grandfather Diabetes mellitus Colon cancer Social History Housing: House Alcohol intake: never Patient Tobacco Use Status: Never used Tobacco e-Cigarette/Vaping Use: Never Used Current occupational status: employed Sexual orientation: Straight/Heterosexual Gender identity: Female Cognitive needs: No Hearing needs: No Vision needs: No Female Reproductive History Menstrual Age of Menarche: 11 Duration of menses: 3-5 days Date of last menstrual period: 12/04/22 control method: none Total pregnancies: 0 Date of last pap smear: 12/25/21 (negative) History of abnormal pap smear: No Review of Systems Const All systems reviewed & are unremarkable except as noted in HPI and below Reports as per HPI Eyes Reports no additional complaints ENT Reports no additional complaints Card Reports no additional complaints Resp Reports no additional complaints GI Reports as per HPI and Reports no additional complaints Reports as per HPI Musc Reports no additional complaints Skin/Breast Reports as per HPI Neuro Reports no additional complaints Psych Reports no additional complaints Endo Reports no additional complaints Mushtaq/Lymph Reports no additional complaints Aller/Immun Reports no additional complaints Physical Exam Vital Signs: Last Vital Signs BP 128/82 02/23/23 08:46 BMI result Body Mass Index 47.0 Const General: cooperative, healthy appearing, no acute distress, well developed and alert Orientation/consciousness: patient oriented x3 HEENT Head: Yes normal to inspection Eyes General: appearance normal, both eyes and all related structures Neck Neck: Yes normal visual inspection Thyroid: Thyroid normal Chest Chest palpation & inspection: normal inspection of the chest and other (no puckering, dimpling, peau de orange, retraction, discharge, masses) Breast/axilla inspection: normal inspection of the breasts Breast/axilla palpation: normal palpation of the breasts Resp Effort & Inspection: normal respiratory effort GI Inspection: Yes normal to inspection and Yes obesity Palpation (GI): Soft to palpation Rectal Exam - Female: deferred General: Yes bladder normal to palpation External Female Exam: normal external appearance and normal appearance of the urethra Speculum Exam - Vagina: normal appearance of the vagina, normal palpation and normal vaginal discharge Speculum Exam - Cervix: normal appearance of the cervix and normal palpation Bimanual exam- vagina & uterus: normal bimanual exam, normal palpation, uterine size normal, bladder normal to palpation, normal palpation and non-tender Bimanual Exam- Adnexa, other: no masses Skin General skin exam: no rashes or lesions noted Rashes: no rashes Neuro General: patient oriented x3 Cognition (Neuro): normal cognition Extrem General: Yes normal to inspection Psych Attitude: cooperative Thought process: Normal thought process present Results AMB Test Urine AMB Test Urine Negative Last Edit by Iovne Lubin CMA on 02/23/23 09:25 Assessment & Plan Assessment & Plan (1) Encounter for well woman exam with routine gynecological exam: Code(s): Z01.419 - Encounter for gynecological examination (general) (routine) without abnormal findings (2) Amenorrhea: Code(s): N91.2 - Amenorrhea, unspecified Plan: Discussed: Current recommendations for pap smears per ASCCP guidelines. Breast awareness and periodic breast exams. Maintain a healthy lifestyle including a well balanced diet and routine exercise. Weight effects on cycles, importance of avoiding amenorrhea by use of hormones when not cycling spontaneously to prevent long-term risks to developing uterine cancer. Use condoms for STI and prevention. control hormone use warnings: go to ER if and loss of vision, blindness, severe headache, chest pain or difficulty breathing, severe abdominal pain, or any pain or swelling in an extremity. Advised to call the office if her appointment gets rescheduled for refill in the future. All of her questions and concerns were addressed to the best of my ability. 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 This note is constructed using voice recognition software. While every effort has been made to ensure accuracy, finishing lab technician errors may have been included. Plan Discussed: Current recommendations for pap smears per ASCCP guidelines. Breast awareness and periodic breast exams. Maintain a healthy lifestyle including a well balanced diet and routine exercise. Weight gain and effects on cycles. Use condoms for STI and prevention. Long-term effect of anovulatory cycles, risk of uterine abnormalities including cancer. Use of Provera. Restarting control pills All of her questions and concerns were addressed to the best of my ability. 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 This note is constructed using voice recognition software. While every effort has been made to ensure accuracy, finishing lab technician errors may have been included. Orders: Orders AMB HCG Urine Test Today Z32.02 - Encounter for test, result negative Medications: New medroxyprogesterone (Provera) take with food 10 mg PO DAILY 7 tabs 0RF levonorgestrel-ethinyl estrad 0.15 mg-30 mcg (91) (Jolessa) 1 tab PO DAILY 91 ea 4RF Coding Level of Care Code Est Pt Prev Care 18-39y(47088) Diagnoses Encounter for well woman exam with routine gynecological exam Z01.419 Amenorrhea N91.2
[2023-02-23 08:46] VITALS: BP 128/82; BMI 47.0
== END 2023-02-23 09:20 | disposition home or self-care (01) ==
LOC: HO.HWS 08:36
PROVIDERS: PCP Internal Medicine; Visit Provider Advanced Practice Midwife
DX: Z01.419 Encounter for gynecological examination (general) (routine) without abnormal findings (principal); N91.2 Amenorrhea, unspecified; Z32.02 Encounter for pregnancy test, result negative
CPT/HCPCS: 99395

== ENCOUNTER → 2023-02-23 08:36 | Outpatient (BNVA) | payer OTHER, SELFPAY | PROVIDERS: PCP Internal Medicine; Visit Provider Advanced Practice Midwife | DX: Z01.419 Encounter for gynecological examination (general) (routine) without abnormal findings (principal); N91.2 Amenorrhea, unspecified | CPT/HCPCS: 81025; 99395 ==